=== PATIENT | male | born 1940 | race Caucasian/White ===

== ENCOUNTER 2024-10-23 19:43 | Inpatient (IN) | payer OTHER, MEDICARE ==
[2024-10-24 02:59] LABS: HEMATOCRIT 28.4 % (35.4-49); HEMOGLOBIN 9.3 GM/dL (11.7-16.9); MCH 31.6 pg (25.7-33.7); MCHC 32.9 g/dl (32.0-35.9); MEAN CELL VOLUME 95.9 fl (80-96); MEAN PLT VOLUME 8.9 fl (7.5-11.1); PLATELET COUNT 257 10^3/uL (134-434); RBC 2.96 M/mm3 (4.00-5.60)
[2024-10-24 03:33] LABS: POTASSIUM 4.4 mmol/L (3.5-5.1)
[2024-10-24 03:35] LABS: ALBUMIN 2.3 g/dl (3.4-5.0); BLOOD UREA NITROGEN 37.4 mg/dL (7-18); CALCIUM 8.2 mg/dL (8.5-10.1)
[2024-10-24 03:39] LABS: CREATININE 1.3 mg/dL (0.55-1.3)
[2024-10-24 03:40] LABS: BILIRUBIN,TOTAL 0.3 mg/dL (0.2-1); TOT PROT 5.6 g/dl (6.4-8.2)
[2024-10-24 04:00] LABS: ANISOCYTOSIS 1+; MACROCYTOSIS 0
[2024-10-24] MEDS: DOXAZOSIN MESYLATE 2 MG TABLET PO ONE (07:50)
[2024-10-24] MEDS: METOPROLOL TARTRATE 25 MG TABLET (FP) PO ONE (07:57)
[2024-10-24] MEDS ORDERED: hydrALAZINE HCL 10 MG TABLET PO ONE (09:47)
[2024-10-24] MEDS ORDERED: ROSUVASTATIN CA 10 MG TABLET PO SCH (10:00)
[2024-10-24] MEDS ORDERED: LOSARTAN POTASSIUM 50 MG TABLET PO SCH ×2 (10:00)
[2024-10-24] MEDS: hydrALAZINE HCL 20 MG/ML VIAL IVPUSH ONE (10:07)
[2024-10-24] MEDS: METOPROLOL TARTRATE 25 MG TABLET (FP) PO SCH (10:51)
[2024-10-24] MEDS: FINASTERIDE 5 MG TABLET (FP) PO SCH (10:51)
[2024-10-24] MEDS: DOXAZOSIN MESYLATE 2 MG TABLET PO SCH (10:51)
[2024-10-24] MEDS: DOXYCYCLINE HYCLATE 100 MG CAPSULE PO SCH (10:51)
[2024-10-24] MEDS: ETHACRYNIC ACID 25 MG TABLET PO SCH (10:54)
[2024-10-24] MEDS: INSULIN ASPART SLIDING SCALE (NOVOLOG) 1 VIAL SQ SCH (12:04)
[2024-10-24] MEDS: hydrALAZINE HCL 10 MG TABLET PO ONE (12:05)
[2024-10-24] MEDS: POLYETHYLENE GLYCOL (HEALTHYLAX) 3350 17 GM PACKET PO SCH (13:32)
[2024-10-24] MEDS: PRIMIDONE 250 MG TABLET PO SCH (13:32)
[2024-10-24] MEDS: AMOX TR/POT CLAV 875MG/125MG TABLETS (FP) PO SCH (17:25)
[2024-10-24] MEDS: PANTOPRAZOLE 40 MG TABLET PO SCH (21:18)
[2024-10-24] MEDS: ROSUVASTATIN CA 20 MG TABLET PO SCH (21:18)
[2024-10-24] MEDS: MELATONIN 5 MG TABLETS PO PRN (21:57)
[2024-10-24] MEDS ORDERED: ROSUVASTATIN CA 5 MG TABLET PO SCH (22:00)
[2024-10-25] MEDS: amLODIPine BESYLATE 5 MG TABLET (FP) PO ONE ×2 (05:51→14:50)
[2024-10-25] MEDS: hydrALAZINE HCL 20 MG/ML VIAL IVPUSH ONE (06:27)
[2024-10-25] MEDS: amLODIPine BESYLATE 5 MG TABLET (FP) PO SCH (09:07)
[2024-10-25 09:10] LABS: HEMATOCRIT 26.8 % (35.4-49); HEMOGLOBIN 8.9 GM/dL (11.7-16.9); MCH 31.8 pg (25.7-33.7); MCHC 33.3 g/dl (32.0-35.9); MEAN CELL VOLUME 95.5 fl (80-96); MEAN PLT VOLUME 9.1 fl (7.5-11.1); PLATELET COUNT 306 10^3/uL (134-434); RBC 2.81 M/mm3 (4.00-5.60); RETICULOCYTES 1.56 % (0.5-1.5); WHITE BLOOD COUNT 6.4 K/mm3 (4.0-10.0)
[2024-10-25 09:11] LABS: INR 1.2 (0.83-1.09); PROTHROMBIN TIME (PATIENT) 13.2 SEC (9.7-13.0)
[2024-10-25 09:31] LABS: POTASSIUM 3.9 mmol/L (3.5-5.1)
[2024-10-25 09:33] LABS: ALBUMIN 2.5 g/dl (3.4-5.0)
[2024-10-25 09:34] LABS: BLOOD UREA NITROGEN 42.4 mg/dL (7-18)
[2024-10-25 09:35] LABS: ALBUMIN 2.5 g/dl (3.4-5.0); BILIRUBIN,DIRECT 0.1 mg/dL (0.0-0.2)
[2024-10-25 09:37] LABS: CALCIUM 8.1 mg/dL (8.5-10.1)
[2024-10-25 09:38] LABS: BILIRUBIN,TOTAL 0.4 mg/dL (0.2-1); CREATININE 1.5 mg/dL (0.55-1.3); MAGNESIUM 1.8 mg/dL (1.8-2.4); PHOSPHOROUS 2.7 mg/dL (2.5-4.9); TOT PROT 5.8 g/dl (6.4-8.2)
[2024-10-25 09:39] LABS: BILIRUBIN,TOTAL 0.4 mg/dL (0.2-1); TOT PROT 5.9 g/dl (6.4-8.2)
[2024-10-25 10:26] LABS: EPI CELLS 5 /uL (0-25.1); HYALINE CASTS 2 /uL (0-3.1); URINE APPEARANCE CLEAR; URINE BACTERIA 22 /uL (0-1359); URINE BILIRUBIN NEGATIVE (NEGATIVE); URINE COLOR YELLOW; URINE GLUCOSE (UA) NEGATIVE (NEGATIVE); URINE KETONE TRACE (NEGATIVE); URINE LEUK ESTERASE NEGATIVE (NEGATIVE); URINE NITRITE NEGATIVE (NEGATIVE); URINE PROTEIN 1+ (NEGATIVE); URINE UROBILINOGEN 0.2 mg/dL (0.2-1.0); URINE WBC 22 /uL (0-25.8)
[2024-10-25 10:48] LABS: URINE RBC 93 /uL (0-23.9)
[2024-10-25] MEDS ORDERED: LOSARTAN POTASSIUM 50 MG TABLET PO SCH (13:30)
[2024-10-25] MEDS: LOSARTAN POTASSIUM 50 MG TABLET PO ONE (13:53)
[2024-10-25] MEDS ORDERED: amLODIPine BESYLATE 5 MG TABLET (FP) PO SCH (14:30)
[2024-10-25] MEDS ORDERED: hydrALAZINE HCL 20 MG/ML VIAL IVPUSH PRN (15:16)
[2024-10-25 15:40] LABS: N-TERMINAL BNP 8446.5 pg/ml (5-450)
[2024-10-25 16:17] VITALS: BMI 30.2
[2024-10-25] MEDS: hydrALAZINE HCL 20 MG/ML VIAL IVPUSH PRN (16:27)
[2024-10-25] MEDS: APIXABAN 2.5 MG TABLET PO SCH (21:25)
[2024-10-26 07:51] LABS: POTASSIUM 3.9 mmol/L (3.5-5.1)
[2024-10-26 07:56] LABS: BASO % 0.6 % (0-2.0); EOS % 1.5 % (0-4.5); HEMATOCRIT 28.1 % (35.4-49); HEMOGLOBIN 9.5 GM/dL (11.7-16.9); MCH 32.1 pg (25.7-33.7); MCHC 33.9 g/dl (32.0-35.9); MEAN CELL VOLUME 94.7 fl (80-96); MEAN PLT VOLUME 9.2 fl (7.5-11.1); MONO % 8.8 % (3.8-10.2); NEUT % 78.1 % (42.8-82.8); PLATELET COUNT 313 10^3/uL (134-434); RBC 2.97 M/mm3 (4.00-5.60); RDW 13.9 % (11.9-15.9); WHITE BLOOD COUNT 5.4 K/mm3 (4.0-10.0)
[2024-10-26 08:04] LABS: ALBUMIN 2.5 g/dl (3.4-5.0); BLOOD UREA NITROGEN 39.2 mg/dL (7-18); CALCIUM 8.5 mg/dL (8.5-10.1)
[2024-10-26 08:07] LABS: BILIRUBIN,DIRECT 0.1 mg/dL (0.0-0.2); CREATININE 1.4 mg/dL (0.55-1.3)
[2024-10-26 08:08] LABS: N-TERMINAL BNP 16365.3 pg/ml (5-450)
[2024-10-26 08:09] LABS: TOT PROT 5.8 g/dl (6.4-8.2)
[2024-10-26 08:11] LABS: BILIRUBIN,TOTAL 0.4 mg/dL (0.2-1)
[2024-10-26] MEDS: ETHACRYNIC ACID 25 MG TABLET PO SCH (09:23)
[2024-10-26] MEDS ORDERED: hydrALAZINE HCL 10 MG TABLET PO PRN (09:26)
[2024-10-26] MEDS: LOSARTAN POTASSIUM 50 MG TABLET PO SCH (09:29)
[2024-10-26] MEDS ORDERED: LOSARTAN POTASSIUM 50 MG TABLET PO SCH (10:00)
[2024-10-26] MEDS ORDERED: PEG 3350/NA SULF BICARB CL/KCL 4000 ML SOLN.RECON PO ONE (11:00)
[2024-10-26] MEDS: hydrALAZINE HCL 25 MG TABLET (FP) PO SCH (14:43)
[2024-10-26] MEDS: amLODIPine BESYLATE 5 MG TABLET (FP) PO SCH (14:43)
[2024-10-26] MEDS ORDERED: BISACODYL 5 MG TABLET.DR (FP) PO ONE (18:00)
[2024-10-26 23:09] LABS: CARCINOEMBRYONIC ANTIGEN 3.1 ng/mL (0.0-4.7)
[2024-10-27 00:08] LABS: GLIADIN ANTIBODY IGA 4 units (0-19); GLIADIN ANTIBODY IGG 4 units (0-19); TRANSGLUTAMINASE IGG 6 U/mL (0-5)
[2024-10-27 07:09] LABS: BASO % 0.6 % (0-2.0); EOS % 1.7 % (0-4.5); HEMATOCRIT 27.3 % (35.4-49); HEMOGLOBIN 9.1 GM/dL (11.7-16.9); MCHC 33.2 g/dl (32.0-35.9); MEAN CELL VOLUME 96.3 fl (80-96); MONO % 9.5 % (3.8-10.2); NEUT % 75.2 % (42.8-82.8); PLATELET COUNT 336 10^3/uL (134-434); RBC 2.83 M/mm3 (4.00-5.60); WHITE BLOOD COUNT 6.1 K/mm3 (4.0-10.0)
[2024-10-27 07:33] LABS: POTASSIUM 3.8 mmol/L (3.5-5.1)
[2024-10-27 07:36] LABS: BLOOD UREA NITROGEN 33.1 mg/dL (7-18); CALCIUM 8.2 mg/dL (8.5-10.1); MAGNESIUM 1.8 mg/dL (1.8-2.4)
[2024-10-27 07:37] LABS: ALBUMIN 2.4 g/dl (3.4-5.0)
[2024-10-27 07:39] LABS: BILIRUBIN,DIRECT 0.2 mg/dL (0.0-0.2); CREATININE 1.3 mg/dL (0.55-1.3)
[2024-10-27 07:41] LABS: BILIRUBIN,TOTAL 0.4 mg/dL (0.2-1); TOT PROT 5.4 g/dl (6.4-8.2)
[2024-10-27] MEDS ORDERED: MELATONIN 5 MG TABLETS PO PRN (08:34)
[2024-10-27] MEDS: AMOX TR/POT CLAV 875MG/125MG TABLETS (FP) PO SCH (10:45)
[2024-10-27] MEDS: FINASTERIDE 5 MG TABLET (FP) PO SCH (10:46)
[2024-10-27] MEDS: PANTOPRAZOLE 40 MG TABLET PO SCH (10:46)
[2024-10-27] MEDS: DOXYCYCLINE HYCLATE 100 MG CAPSULE PO SCH (10:46)
[2024-10-27] MEDS: APIXABAN 2.5 MG TABLET PO SCH (10:46)
[2024-10-27] MEDS: METOPROLOL TARTRATE 25 MG TABLET (FP) PO SCH (10:46)
[2024-10-27] MEDS: DOXAZOSIN MESYLATE 2 MG TABLET PO SCH (10:47)
[2024-10-27] MEDS: INSULIN ASPART SLIDING SCALE (NOVOLOG) 1 VIAL SQ SCH (12:03)
[2024-10-27] MEDS: EPLERENONE 25 MG TABLET PO SCH (12:50)
[2024-10-27 14:07] LABS: IG A QN SERUM. 136 mg/dL (61-437)
[2024-10-27] MEDS: POLYETHYLENE GLYCOL (HEALTHYLAX) 3350 17 GM PACKET PO SCH (15:35)
[2024-10-27] MEDS: hydrALAZINE HCL 25 MG TABLET (FP) PO SCH (15:41)
[2024-10-27] MEDS: LOSARTAN POTASSIUM 50 MG TABLET PO SCH (15:41)
[2024-10-27] MEDS: ASPIRIN COATED 81 MG TABLET.EC PO SCH (15:41)
[2024-10-27] MEDS: PRIMIDONE 250 MG TABLET PO SCH (15:41)
[2024-10-27] MEDS: PEG 3350/NA SULF BICARB CL/KCL 4000 ML SOLN.RECON PO ONE (16:28)
[2024-10-28] MEDS: hydrALAZINE HCL 20 MG/ML VIAL IVPUSH ONE (03:23)
[2024-10-28 07:16] LABS: BASO % 0.4 % (0-2.0); EOS % 0.7 % (0-4.5); HEMATOCRIT 30.1 % (35.4-49); HEMOGLOBIN 9.9 GM/dL (11.7-16.9); LYMPH % 9.9 % (8-40); MCH 31.5 pg (25.7-33.7); MCHC 32.9 g/dl (32.0-35.9); MEAN CELL VOLUME 95.7 fl (80-96); MEAN PLT VOLUME 8.7 fl (7.5-11.1); MONO % 7.3 % (3.8-10.2); NEUT % 81.7 % (42.8-82.8); PLATELET COUNT 368 10^3/uL (134-434); RBC 3.14 M/mm3 (4.00-5.60); RDW 13.7 % (11.9-15.9); WHITE BLOOD COUNT 8.7 K/mm3 (4.0-10.0)
[2024-10-28 07:38] LABS: POTASSIUM 3.7 mmol/L (3.5-5.1)
[2024-10-28 07:41] LABS: CALCIUM 8.4 mg/dL (8.5-10.1)
[2024-10-28 07:42] LABS: ALBUMIN 2.5 g/dl (3.4-5.0); BLOOD UREA NITROGEN 30.7 mg/dL (7-18); MAGNESIUM 1.8 mg/dL (1.8-2.4)
[2024-10-28 07:45] LABS: CREATININE 1.3 mg/dL (0.55-1.3)
[2024-10-28 07:46] LABS: INR 1.32 (0.83-1.09); PROTHROMBIN TIME (PATIENT) 14.5 SEC (9.7-13.0)
[2024-10-28 07:47] LABS: BILIRUBIN,TOTAL 0.5 mg/dL (0.2-1); TOT PROT 5.6 g/dl (6.4-8.2)
[2024-10-28] MEDS: NIFEdipine E.R 60 MG TABLET PO SCH (09:06)
[2024-10-28] MEDS: FUROSEMIDE 20 MG TABLET (FP) PO SCH (09:06)
[2024-10-28] MEDS: hydrALAZINE HCL 20 MG/ML VIAL IM PRN (14:23)
[2024-10-28] MEDS: PRIMIDONE 250 MG TABLET PO SCH (15:24)
[2024-10-28] MEDS: hydrALAZINE HCL 25 MG TABLET (FP) PO SCH (22:15)
[2024-10-29 07:37] LABS: BASO % 0.4 % (0-2.0); EOS % 1.1 % (0-4.5); HEMATOCRIT 32.3 % (35.4-49); HEMOGLOBIN 10.6 GM/dL (11.7-16.9); LYMPH % 11.4 % (8-40); MCH 31.4 pg (25.7-33.7); MCHC 32.9 g/dl (32.0-35.9); MEAN CELL VOLUME 95.4 fl (80-96); MEAN PLT VOLUME 8.4 fl (7.5-11.1); MONO % 7.6 % (3.8-10.2); NEUT % 79.5 % (42.8-82.8); PLATELET COUNT 411 10^3/uL (134-434); RBC 3.38 M/mm3 (4.00-5.60); WHITE BLOOD COUNT 9.4 K/mm3 (4.0-10.0)
[2024-10-29 07:59] LABS: POTASSIUM 3.8 mmol/L (3.5-5.1)
[2024-10-29 08:26] LABS: ALBUMIN 2.6 g/dl (3.4-5.0); CALCIUM 8.7 mg/dL (8.5-10.1)
[2024-10-29 08:27] LABS: BLOOD UREA NITROGEN 33.7 mg/dL (7-18)
[2024-10-29 08:30] LABS: CREATININE 1.4 mg/dL (0.55-1.3)
[2024-10-29 08:31] LABS: BILIRUBIN,TOTAL 0.4 mg/dL (0.2-1); TOT PROT 5.8 g/dl (6.4-8.2)
[2024-10-29] MEDS: EPLERENONE 25 MG TABLET PO SCH (14:36)
[2024-10-29] MEDS: IRON SUCROSE INJECTION 200 MG in SODIUM CHLORIDE 100 ML IVPB ONE (21:19)
[2024-10-30 15:16] VITALS: RESP 18
[2024-10-30 20:18] VITALS: BP 154/57; PULSE 56; TEMP 98.1
== END 2024-10-30 22:27 | DRG 377 ==
LOC: JER 19:43 → JERBED 10-24 04:42 → J7W 10-24 09:13 → OBSVTOIN 10-24 15:49 → J4W 10-25 15:48
PROVIDERS: ADMIT Internal Medicine; ATTEND Internal Medicine
DX: K92.2 Gastrointestinal hemorrhage, unspecified (principal); J18.9 Pneumonia, unspecified organism; K86.2 Cyst of pancreas; D62 Acute posthemorrhagic anemia; R29.6 Repeated falls; I16.0 Hypertensive urgency; I25.10 Atherosclerotic heart disease of native coronary artery without angina pectoris; I12.9 Hypertensive chronic kidney disease with stage 1 through stage 4 chronic kidney disease, or unspecified chronic kidney disease; N18.9 Chronic kidney disease, unspecified; E11.22 Type 2 diabetes mellitus with diabetic chronic kidney disease; N40.0 Benign prostatic hyperplasia without lower urinary tract symptoms; E78.5 Hyperlipidemia, unspecified; K76.0 Fatty (change of) liver, not elsewhere classified; K80.20 Calculus of gallbladder without cholecystitis without obstruction; I45.10 Unspecified right bundle-branch block; R00.1 Bradycardia, unspecified; W06.XXXA Fall from bed, initial encounter; W18.30XA Fall on same level, unspecified, initial encounter; Y92.230 Patient room in hospital as the place of occurrence of the external cause; Y99.9 Unspecified external cause status; Z95.1 Presence of aortocoronary bypass graft
CPT/HCPCS: 0241U-QW; 36415; 70450-TC; 71045-TC-FY; 71046-TC-FY; 72125-TC; 72170-TC-FY; 74183-TC; 76705-TC; 80053; 80061; 80076; 81003; 82378; 82550; 82607; 82728; 82746; 82784; 82962; 83036; 83516; 83540; 83550; 83690; 83735; 83880; 84100; 84155; 84165; 84439; 84443; 84484; 85025; 85027; 85045; 85610; 86140; 86301; 86334; 87086; 87340; 87517; 93005; 93010; 93306-TC; 99285-25; G0378; J1756